=== PATIENT | female | born 1960 | race Caucasian/White ===

== ENCOUNTER 2017-08-10 07:21 | Emergency (ER) | payer OTHER ==
[~2017-08-10] VITALS: Ht 162.6 cm; Wt 90.7 kg
[~2017-08-10 07:21] MED LIST: ASPIRIN EC81 M1 PO; FERROUS SULFAT325 M3 PO; TRAMADOL HCL50 M1 PO; VITAMIN D5000 UNIT PO
--- NOTE | 2017-08-10 08:39 | RADIOLOGY REPORT ---
EXAMINATION: XR PELVIS XR LEFT HIP CLINICAL INFORMATION: Fall. Left hip pain COMPARISON: None TECHNIQUE: AP view of the pelvis. 2 views left hip FINDINGS: Pelvis: Metallic densities superimposed over L5. A clip projects over the right iliac wing. The SI joints, hips and symphysis are in normal alignment. The visualized sacral neural arches appear smooth and intact. There is no pelvic fracture demonstrated. No evidence of an abnormal pelvic mass or collection. The femoral heads are relatively uncovered by the bony acetabulum. Left hip: The visualized proximal left femur appears intact. There is mild degenerative change and there is a slight contour abnormality at the head neck junction laterally. The femoral head contour is otherwise smooth. There is a smooth ossific density associated with the superolateral aspect of the acetabulum. IMPRESSION: No fracture or subluxation.
--- NOTE | 2017-08-10 09:08 | ED MVC/FALL/TRAUMA COMPLAINT ---
History of Present Illness General Chief Complaint: Fall Stated Complaint: LEFT HIP PAIN S/P MECHANICAL FALL Source: patient Exam Limitations: no limitations Vital Signs & Intake/Output Vital Signs & Intake/Output Vital Signs Date Time Temp Pulse Resp B/P B/P Pulse O2 O2 Flow FiO2 Mean Ox Delivery Rate 08/10 1113 78 18 134/80 100 08/10 0737 98.2 68 20 128/82 99 Room Air Allergies Coded Allergies: nitrofurantoin (From MACROBID) (Intermediate, HEADACHE 07/25/17) Sulfa (Sulfonamide Antibiotics) (RASH 07/25/17) Reconcile Medications Aspirin (Ecotrin*) 81 MG TABLET.DR 1 TAB PO DAILY HEART HEALTH (Reported) Cholecalciferol (Vitamin D3) (Vitamin D) 5,000 UNIT TABLET 1 TAB PO DAILY VITAMIN SUPPORT (Reported) Ferrous Sulfate 325 MG (65 MG IRON) TABLET 1 TAB PO DAILY IRON, VITAMIN ( Reported) Tramadol HCl 50 MG TABLET 1 TAB PO Q6P PRN PAIN (Reported) Triage Note: C/O PAIN IN LEFT HIP, LEFT THIGH, S/P FALL ON STEP EARLY THIS AM. DENIES WEAKNESS, DIZZINESS OR CHEST PAIN PRIOR TO FALL. REPORTS SHE JUST FINISHED CIPRO FOR A UTI. Triage Nurses Notes Reviewed? yes Onset: Abrupt Duration: hour(s): (3 am), constant Timing: recent history Severity: moderate, severe Injuries/Fall Location: lower extremity Method of Injury: fall Loss of Consciousness: no loss of consciousness HPI: 56-year-old female comes into the emergency room for further evaluation of left hip/groin pain after falling last night around 3 AM in the morning. Patient reports that she missed a step in her house and came down on her left hip her arms out. Denies any head trauma. Denies any neck pain. Denies any chest pain abdominal pain. Denies any pain to any of her upper extremities or her right leg. Pain is all localized to the left hip and left groin region. She comes in for further evaluation. She's been able to ambulate but has been having pain with ambulation. (Darian Lyn) Past History Travel History Traveled to [place] past 21 day No Medical History Any Pertinent Medical History? see below for history Neurological: NONE EENT: NONE Cardiovascular: NONE Respiratory: NONE Gastrointestinal: NONE Hepatic: NONE Renal: NONE Musculoskeletal: NONE Psychiatric: NONE Endocrine: NONE Blood Disorders: NONE Cancer(s): NONE FAMILY LAW MEDIATOR/Reproductive: NONE Surgical History Surgical History: non-contributory Psychosocial History Who do you live with Family What is your primary language [place] Citizen Tobacco Use: Never used ETOH Use: occasional use Family History Hx Contributory? No (Darian Lyn) Review of Systems Review of Systems Constitutional: Reports: no symptoms. Eyes: Reports: no symptoms. Ears, Nose, Throat, Mouth: Reports: no symptoms. Respiratory: Reports: no symptoms. Cardiovascular: Reports: no symptoms. Gastrointestinal/Abdominal: Reports: no symptoms. Genitourinary: Reports: no symptoms. Musculoskeletal: Reports: see HPI. Skin: Reports: no symptoms. Neurological/Psychological: Reports: no symptoms. All Other Systems: Reviewed and Negative (Darian Lyn) Physical Exam Physical Exam General Appearance: well developed/nourished, alert, awake Head: atraumatic, normal appearance Eyes: Bilateral: normal appearance, EOMI. Ears, Nose, Throat, Mouth: hearing grossly normal, moist mucous membrane Neck: normal inspection Respiratory: normal breath sounds, no respiratory distress Cardiovascular: regular rate/rhythm Back: normal inspection Extremities: normal range of motion Neurologic/Psych: awake, alert, oriented x 3 Skin: intact, normal color Core Measures ACS in differential dx? No CVA/TIA Diagnosis No Sepsis Present: No Sepsis Focused Exam Completed? No (Darian Lyn) Progress Differential Diagnosis: abd injury, C/T/L spine injury, ext injury, ICH, pelvis injury, pnemothorax, spinal cord injury Plan of Care: Orders Procedure Date/time Status CT PELVIS WO IV CONTRAST 08/10 849 Active Diagnostic Imaging: Viewed by Me: Radiology Read, CT Scan. Discussed w/RAD: Radiology Read, CT Scan. Radiology Impression: PATIENT: CLAYTON RAMAN PRESENT AGE : 56 PATIENT ACCOUNT NO: [id number] : 61 LOCATION: [facility] ORDERING PHYSICIAN: Darian DOLAN SERVICE DATE: 08/10/17 EXAM TYPE: RAD - XRY-AP PELVIS; XRY-HIP 2-3 VIEWS, LEFT EXAMINATION: XR PELVIS XR LEFT HIP CLINICAL INFORMATION: Fall. Left hip pain COMPARISON: None TECHNIQUE: AP view of the pelvis. 2 views left hip FINDINGS: Pelvis: Metallic densities superimposed over L5. A clip projects over the right iliac wing. The SI joints, hips and symphysis are in normal alignment. The visualized sacral neural arches appear smooth and intact. There is no pelvic fracture demonstrated. No evidence of an abnormal pelvic mass or collection. The femoral heads are relatively uncovered by the bony acetabulum. Left hip: The visualized proximal left femur appears intact. There is mild degenerative change and there is a slight contour abnormality at the head neck junction laterally. The femoral head contour is otherwise smooth. There is a smooth ossific density associated with the superolateral aspect of the acetabulum. IMPRESSION: No fracture or subluxation. DICTATED BY: Costa Miramontes MD DATE/TIME DICTATED:08/10/17831 INDUSTRIAL METHODS CONSULTANT:VICK DATE/TIME TRANSCRIBED:08/10/17831 CONFIDENTIAL, DO NOT COPY WITHOUT APPROPRIATE AUTHORIZATION. <Electronically signed in Other Vendor System> SIGNED BY: Costa Miramontes MD 08/10/1739, PATIENT: CLAYTON RAMAN PRESENT AGE: 56 PATIENT ACCOUNT NO: [id number] : 61 LOCATION: [facility] ORDERING PHYSICIAN: Darian DOLAN SERVICE DATE: 08/10/17 EXAM TYPE: CAT - CT PELVIS WO IV CONTRAST EXAMINATION: CT PELVIS WITHOUT CONTRAST CLINICAL INFORMATION: Assess for left hip or pelvic fracture. COMPARISON: X-rays obtained earlier 08/10/2017. TECHNIQUE: Helical scanning was performed with submillimeter collimation through the pelvis. Sagittal and coronal multiplanar 2-D reconstructions were obtained. DLP: 945.65 mGy-cm FINDINGS: PELVIS: The urinary bladder is moderately distended. The uterus is anteverted. There are no large pelvic masses. There is no free fluid in the pelvis. There is mild fluid within nondilated loops of small bowel. The visualized liver is unremarkable. The appendix is not discretely identified, but there is no evidence of pericecal inflammation. OSSEOUS STRUCTURES: There is a 4 mm grade 1 anterolisthesis of L4 on L5 with marked narrowing of intervertebral disc height at this level. There are severe facet arthropathic changes bilaterally. There are also severe facet arthropathic changes on the left at L5- S1. The coccyx is slightly anteverted with respect to the sacrum, which appears chronic. There are mild degenerative changes of the bilateral sacroiliac joints. The alignment of the left hip joint is normal. The study redemonstrates a well- defined osseous density lateral to the superior margin of the acetabulum, likely consistent with sequelae of prior trauma. No acute fractures are noted of the right hip or femoral neck/intertrochanteric region. Small areas of low- attenuation are noted in the superior lateral acetabulum and in the left greater than right ischial ischial bones along the inferior margins of the bilateral hip joints. The symphysis pubis is intact. IMPRESSION: 1. There are no acute fractures or subluxations of the hips. 2. 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 3. No masses or free fluid are noted in the pelvis. DICTATED BY: Quincy Lerma MD DATE/TIME DICTATED:08/10/171023 INDUSTRIAL METHODS CONSULTANT:VICK DATE/TIME TRANSCRIBED:08/10/171023 CONFIDENTIAL, DO NOT COPY WITHOUT APPROPRIATE AUTHORIZATION. <Electronically signed in Other Vendor System> SIGNED BY: Quincy Lerma MD 08/10/17 1038 (Darian Lyn) Departure Departure Disposition: HOME OR SELF CARE Condition: Stable Clinical Impression Primary Impression: Sprain of left hip Referrals: Karely Austin (PCP/Family) Additional Instructions: Take Tylenol as needed for pain. Return if any concerns worsening symptoms. Please go over all results of today's visit with your primary care doctor. Contact your primary care doctor to let them know you were here in the emergency room. There may be nonspecific findings which may not be related to your visit today here in the emergency room but may require further evaluation and chronic monitoring by your primary care doctor. If you had a laceration today the chance of foreign body always remains. You should follow-up with your primary care doctor for recheck in 3-5 days for a wound check. If you had an x-ray done there is a chance that a fracture could have been missed on initial read and you should follow-up with your primary care doctor for repeat x-rays if symptoms persist. If your blood pressure was elevated here in the emergency room please have rechecked by [facility] primary care doctor within the next 48. If you were prescribed a narcotic here in the emergency room or any type of controlled substances you're not allowed to drive while taking this medication or operate any type of heavy machinery. Narcotics can make you feel lightheaded dizziness nausea and can cause constipation. You may need to pickling drum operator a stool softener. Thank you for choosing [facility] emergency room. Please return to the emergency room immediately if you have any other concerns worsening of symptoms. Departure Forms: Customer Survey General Discharge Information Comments 08/10/2017 11:28:07 AM In no apparent distress. Nontoxic-appearing. No evidence of acute trauma. Patient able to ambulate. No evidence of fracture. Declined pain medication to go home with. Take Tylenol as needed for pain. (Darian Lyn) PA/GATE WATCHMAN Co-Sign Statement Statement: ED Attending supervision documentation- [] I saw and evaluated the patient. I have also reviewed all the pertinent lab results and diagnostic results. I agree with the findings and the plan of care as documented in the PA's/GATE WATCHMAN's documentation. [x] I have reviewed the ED Record and agree with the PA's/GATE WATCHMAN's documentation. [] Additions or exceptions (if any) to the PAs/GATE WATCHMAN's note and plan are summarized below: [] (Gilmar Anaya DO)
--- NOTE | 2017-08-10 10:38 | CT SCAN REPORT ---
EXAMINATION: CT PELVIS WITHOUT CONTRAST CLINICAL INFORMATION: Assess for left hip or pelvic fracture. COMPARISON: X-rays obtained earlier 08/10/2017. TECHNIQUE: Helical scanning was performed with submillimeter collimation through the pelvis. Sagittal and coronal multiplanar 2-D reconstructions were obtained. DLP: 945.65 mGy-cm FINDINGS: PELVIS: The urinary bladder is moderately distended. The uterus is anteverted. There are no large pelvic masses. There is no free fluid in the pelvis. There is mild fluid within nondilated loops of small bowel. The visualized liver is unremarkable. The appendix is not discretely identified, but there is no evidence of pericecal inflammation. OSSEOUS STRUCTURES: There is a 4 mm grade 1 anterolisthesis of L4 on L5 with marked narrowing of intervertebral disc height at this level. There are severe facet arthropathic changes bilaterally. There are also severe facet arthropathic changes on the left at L5-S1. The coccyx is slightly anteverted with respect to the sacrum, which appears chronic. There are mild degenerative changes of the bilateral sacroiliac joints. The alignment of the left hip joint is normal. The study redemonstrates a well-defined osseous density lateral to the superior margin of the acetabulum, likely consistent with sequelae of prior trauma. No acute fractures are noted of the right hip or femoral neck/intertrochanteric region. Small areas of low-attenuation are noted in the superior lateral acetabulum and in the left greater than right ischial ischial bones along the inferior margins of the bilateral hip joints. The symphysis pubis is intact. IMPRESSION: 1. There are no acute fractures or subluxations of the hips. 2. 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 3. No masses or free fluid are noted in the pelvis.
[2017-08-10 11:13] VITALS: BP 134/80
== END 2017-08-10 11:23 ==
LOC: ERH 07:21
DX: S73.102A Unspecified sprain of left hip, initial encounter (principal); W19.XXXA Unspecified fall, initial encounter; Y92.009 Unspecified place in unspecified non-institutional (private) residence as the place of occurrence of the external cause; Y93.89 Activity, other specified
CPT/HCPCS: 72170; 73502-LT